=== PATIENT | male | born 1965 | race Hispanic/Latino ===

== ENCOUNTER 2018-05-06 08:11 | Outpatient (CLI) | payer BC | END 2018-05-06 08:12 | disposition home or self-care (01) | LOC: BICULT 08:11 | PROVIDERS: ATTEND Internal Medicine Medical Oncology | DX: C18.7 Malignant neoplasm of sigmoid colon (principal); R10.11 Right upper quadrant pain; K76.0 Fatty (change of) liver, not elsewhere classified; Z15.09 Genetic susceptibility to other malignant neoplasm | CPT/HCPCS: 76700 ==

== ENCOUNTER 2024-03-11 07:59 | Outpatient (CLI) | payer BC | END 2024-03-11 08:00 | disposition home or self-care (01) | LOC: BICCT 07:59 | PROVIDERS: ATTEND Physician Assistant Medical | DX: K75.81 Nonalcoholic steatohepatitis (NASH) (principal); K29.70 Gastritis, unspecified, without bleeding; K74.60 Unspecified cirrhosis of liver; N28.89 Other specified disorders of kidney and ureter | CPT/HCPCS: 74177; 82565 ==

== ENCOUNTER 2024-04-11 10:36 | Outpatient (CLI) | payer BC | END 2024-04-11 10:37 | disposition home or self-care (01) | LOC: ULT 10:36 | PROVIDERS: ATTEND Physician Assistant Medical | DX: N28.1 Cyst of kidney, acquired (principal); N28.9 Disorder of kidney and ureter, unspecified | CPT/HCPCS: 76770 ==